=== PATIENT | male | born 1995 | race Caucasian/White ===

== ENCOUNTER 2017-12-18 15:41 | Emergency (ER) | payer MEDICAID, OTHER ==
[2017-12-18 16:24] VITALS: BMI 27.3
[2017-12-18 16:29] VITALS: PULSE 74; RESP 16; O2SAT 98
--- NOTE | 2017-12-18 17:00 | C.PDOC ---
History Of Present Illness 22 year old male presents to the ED complaining of left hip pain for some time now. Patient states he had a football accident 4 years ago after which he required surgery, and the left hip has been painful since then. No new trauma. Pain is described as worse after standing for a prolonged period. Patient denies taking any medicine for symptom relief. 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 Time Seen by Provider: 12/18/17 16:28 Chief Complaint (Nursing): Lower Extremity Problem/Injury History Per: Patient History/Exam Limitations: no limitations Onset/Duration Of Symptoms: Days Current Symptoms Are (Timing): Still Present Past Medical History Reviewed: Historical Data, Nursing Documentation, Vital Signs Vital Signs: Last Vital Signs Temp 98.8 F 12/18/17 17:49 Pulse 74 12/18/17 17:49 Resp 16 12/18/17 17:49 BP 113/56 L 12/18/17 17:49 Pulse Ox 98 12/18/17 17:49 Other Surgeries: Orthopedic surgery, left leg Family History: States: No Known Family Hx - Social History Hx Alcohol Use: No Hx Substance Use: Yes Review Of Systems Musculoskeletal: Positive for: Leg Pain (left hip) Skin: Negative for: Lesions Neurological: Negative for: Weakness, Numbness, Incoordination Physical Exam - Physical Exam Appears: Well, Non-toxic, No Acute Distress Skin: Normal Color, Warm, Dry Head: Atraumatic, Normacephalic Eye(s): bilateral: Normal Inspection, EOMI Nose: Normal Oral Mucosa: Moist Neck: Normal ROM, Supple Chest: Symmetrical Respiratory: No Accessory Muscle Use Extremity: Normal ROM (with full ROM of left lower extremity), Tenderness (to lateral aspect of left hip), No Pedal Edema, No Calf Tenderness, Capillary Refill (less than 2 sec), No Deformity, No Swelling Pulses: Left Dorsalis Pedis: Normal, Right Dorsalis Pedis: Normal Neurological/Psych: Oriented x3, Normal Speech, Normal Sensation Gait: Steady ED Course And Treatment O2 Sat by Pulse Oximetry: 98 (RA) Pulse Ox Interpretation: Normal - Other Rad X-Ray L Hip/Pelvis X-Ray: Viewed By Me, Read By Radiologist Interpretation: FINDINGS: BONES: No evidence of acute displaced fracture nor dislocation. Presumed old fracture deformity of the left humeral head/neck of with a in situ on compression screw traversing the left femoral neck and head. Hardware intact without evidence of loosening or failure. Note is made of a small elliptical and/or triangular-shaped bony density within the soft tissues adjacent to the superolateral margin of the left acetabulum which could represent heterotopic bone, sequela of old posttraumatic mineralization or old unfused avulsion injury. JOINTS: Degenerative changes left hip. SOFT TISSUES : Normal. OTHER FINDINGS: None. IMPRESSION: No evidence of acute displaced fracture nor dislocation. Old fracture deformity left humeral head/neck with in situ compression screw that appears intact. There is a small elliptical shaped bony density adjacent to the superolateral border of the left acetabula which could represent old posttraumatic mineralization heterotopic bone or sequela of old unfused injury. Degenerative osteoarthritis left hip. Progress Note: X-ray taken of left hip/pelvis. Patient given 600mg PO Motrin for pain control. X-ray findings reviewed with patient in detail and copy given. Counseled regarding diagnosis and follow up instructions with his orthopedic. Disposition - Disposition Referrals: Mendoza Santizo III, MD [Staff Provider] - Disposition: HOME/ ROUTINE Disposition Time: 17:39 Condition: STABLE Additional Instructions: Follow up with your bone doctor in 1-2 days. Return to ER if symptoms persist or worsen. Prescriptions: Ibuprofen [Motrin] 600 mg PO Q6 PRN #20 tab PRN Reason: Pain, Mild (1-3) Instructions: Hip Pain (DC) Forms: [facility] (Arabic) - Clinical Impression Clinical Impression: Left hip pain - PA / CARDIOTHORACIC ANESTHESIA TECHNICIAN / Resident Statement MD/DO has reviewed & agrees with the documentation as recorded. - Scribe Statement The provider has reviewed the documentation as recorded by the Scribe (Elissa Reddy) All medical record entries made by the Scribe were at my direction and personally dictated by me. I have reviewed the chart and agree that the record accurately reflects my personal performance of the history, physical exam, medical decision making, and the department course for this patient. I have also personally directed, reviewed, and agree with the discharge instructions and disposition.
--- NOTE | 2017-12-18 17:40 | RAD ---
PROCEDURE: Left Hip X-ray Radiographs. HISTORY: Pain COMPARISON: None. FINDINGS: BONES: No evidence of acute displaced fracture nor dislocation. Presumed old fracture deformity of the left humeral head/neck of with a in situ on compression screw traversing the left femoral neck and head. Hardware intact without evidence of loosening or failure. Note is made of a small elliptical and/or triangular-shaped bony density within the soft tissues adjacent to the superolateral margin of the left acetabulum which could represent heterotopic bone, sequela of old posttraumatic mineralization or old unfused avulsion injury. JOINTS: Degenerative changes left hip. SOFT TISSUES: Normal. OTHER FINDINGS: None. IMPRESSION: No evidence of acute displaced fracture nor dislocation. Old fracture deformity left humeral head/neck with in situ compression screw that appears intact. There is a small elliptical shaped bony density adjacent to the superolateral border of the left acetabula which could represent old posttraumatic mineralization heterotopic bone or sequela of old unfused injury. Degenerative osteoarthritis left hip.
[2017-12-18 17:50] VITALS: BP 113/56; TEMP 98.8
== END 2017-12-18 17:49 | disposition home or self-care (01) ==
LOC: C.ER 15:41
DX: M25.552 Pain in left hip (principal)

== ENCOUNTER 2018-01-30 10:18 | Emergency (ER) | payer OTHER ==
[2018-01-30 10:37] VITALS: BMI 23.5
[2018-01-30 10:39] VITALS: TEMP 99.2
[2018-01-30] MEDS ORDERED: Lidocaine Hydrochloride 5 ML INJ ONE (11:00)
[2018-01-30] MEDS ORDERED: Bacitracin 500 Units/gm Oint Foilpak UD ONE (11:01)
[2018-01-30] MEDS ORDERED: Tdap Vaccine 0.5 ml Vial (10-64 yrs) IM ONE ×2 (11:24→11:31)
[2018-01-30] MEDS ORDERED: Lidocaine 1% Inj (20ml) INFIL ONE (11:25)
[2018-01-30] MEDS ORDERED: Bacitracin 500 Units/gm Oint Foilpak UD TOP ONE (11:25)
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
[2018-01-30 12:04] VITALS: BP 105/81; PULSE 81; RESP 16
[2018-01-30 12:58] VITALS: O2SAT 100
== END 2018-01-30 12:03 | disposition home or self-care (01) ==
LOC: C.ER 10:18
DX: S61.012A Laceration without foreign body of left thumb without damage to nail, initial encounter (principal); W45.8XXA Other foreign body or object entering through skin, initial encounter